=== PATIENT | female | born 1990 | race Caucasian/White ===

== ENCOUNTER 2016-04-23 15:25 | Emergency (ER) | payer OTHER ==
--- NOTE | 2016-04-23 15:57 | ED NURSING NOTES ---
Clinical Report - Nurses [facility] [address] [place] [address] 04/23/2016 15:27 Patient: SUSHMA OTERO TRIAGE Triage time 1530. Acuity: LEVEL 3. Chief Complaint: HEADACHE. Alert. No acute distress. --15:41 Debbie Cortez 15:38 04/23/16. BP: 111/64. HR: 100. RR: 20. O2 saturation: 100%. Temp: 99.4 F. Pain level now 11/17. --15:41 Debbie Cortez. Weight: 110.3 kg. Height/Length: 61 inches. BMI: 46. --15:35 Debbie Cortez. Medications Aleve Oral. --15:39 Debbie Cortez. Allergies No Known Drug Allergy. --15:39 Debbie Cortez. History Arrived by private vehicle. Historian: patient. Accompanied by family. This started today. ( Pt with URI including congestion and sore throat, mouth breathing, then awoke with headache this am, hx of headaches). 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 PAST MEDICAL HX: Headaches. Immunizations: up-to-date. Last normal menstrual period- Apr 12. SOCIAL HX: Never smoker. Occasional alcohol use. --15:41 Debbie Cortez. PROBLEMS: Allergic Rhinitis. Headache. Sinus Problems. Chronic Headache. --15:39 Debbie Cortez. ADDITIONAL SURGERIES: Colonoscopy. Tonsillectomy. --15:39 Debbie Cortez. Interventions ID band on patient. To treatment room. --15:41 Debbie Cortez. PHYSICAL ASSESSMENT Ambulatory to room. GENERAL / NEURO / PSYCH: Alert. Oriented X 4. Appears in no acute distress. Speech within normal limits. ( Playing on phone in WR). HEENT: No facial asymmetry noted. Pupils equal, round and reactive to light. RESPIRATORY: Respirations not labored. Breath sounds within normal limits. CVS: Capillary refill less than 2 seconds. GI / : Abdomen soft and nontender. SKIN: Skin is warm. --15:41 Debbie Cortez. NURSING PROGRESS NOTES Reassurance given. Two patient identifiers checked. Call light placed in reach. Side rails up x 1. Bed placed in lowest position. Brakes of bed on. Patient ready for evaluation- chart flagged. --15:41 Debbie Cortez 15:58 04/23/2016 Toradol (Ketorolac Tromethamine) IM 60 mg given. Given in the right gluteus maurilio. --15:58 Debbie Cortez. DISPOSITION / DISCHARGE 16:13 04/23/16. Departure time: 1608. Condition at departure: improved and stable. No learning barriers present. Discharge instructions provided and reviewed with the patient and family. Reviewed medication(s) side effects, precautions, dosing and course information. Prescription(s) given to the patient. Patient verbalized understanding. Written instructions provided in [place]awk. The patient was discharged by the nurse practitioner. She was discharged home and accompanied by family. She left the Emergency Department ambulatory and via private vehicle. Family member driving. --16:13 Carlos Costa R.N. 16:13 04/23/16. BP: 111/53. HR: 102. RR: 20. O2 saturation: 98%. Temp: 98.6 F. Pain level now 7/10. --16:13 Carlos Costa R.N. 16:18. ( GAS GENERATOR OPERATOR aware of discharge HR). --16:17 Carlos Costa R.N. Locked/Released at 05/07/2016 9:01 by Raquel Vilchis R.N.
--- NOTE | 2016-04-23 15:57 | ED NURSING NOTES ---
Clinical Report - Nurses [facility] [address] [place] [address] 04/23/2016 15:27 Patient: SUSHMA OTERO TRIAGE Triage time 1530. Acuity: LEVEL 3. Chief Complaint: HEADACHE. Alert. No acute distress. --15:41 Debbie Cortez 15:38 04/23/16. BP: 111/64. HR: 100. RR: 20. O2 saturation: 100%. Temp: 99.4 F. Pain level now 11/17. --15:41 Debbie Cortez. Weight: 110.3 kg. Height/Length: 61 inches. BMI: 46. --15:35 Debbie Cortez. Medications Aleve Oral. --15:39 Debbie Cortez. Allergies No Known Drug Allergy. --15:39 Debbie Cortez. History Arrived by private vehicle. Historian: patient. Accompanied by family. This started today. ( Pt with URI including congestion and sore throat, mouth breathing, then awoke with headache this am, hx of headaches). 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 PAST MEDICAL HX: Headaches. Immunizations: up-to-date. Last normal menstrual period- Apr 12. SOCIAL HX: Never smoker. Occasional alcohol use. --15:41 Debbie Cortez. PROBLEMS: Allergic Rhinitis. Headache. Sinus Problems. Chronic Headache. --15:39 Debbie Cortez. ADDITIONAL SURGERIES: Colonoscopy. Tonsillectomy. --15:39 Debbie Cortez. Interventions ID band on patient. To treatment room. --15:41 Debbie Cortez. PHYSICAL ASSESSMENT Ambulatory to room. GENERAL / NEURO / PSYCH: Alert. Oriented X 4. Appears in no acute distress. Speech within normal limits. ( Playing on phone in WR). HEENT: No facial asymmetry noted. Pupils equal, round and reactive to light. RESPIRATORY: Respirations not labored. Breath sounds within normal limits. CVS: Capillary refill less than 2 seconds. GI / : Abdomen soft and nontender. SKIN: Skin is warm. --15:41 Debbie Cortez. NURSING PROGRESS NOTES Reassurance given. Two patient identifiers checked. Call light placed in reach. Side rails up x 1. Bed placed in lowest position. Brakes of bed on. Patient ready for evaluation- chart flagged. --15:41 Debbie Cortez 15:58 04/23/2016 Toradol (Ketorolac Tromethamine) IM 60 mg given. Given in the right gluteus maurilio. --15:58 Debbie Cortez. DISPOSITION / DISCHARGE 16:13 04/23/16. Departure time: 1608. Condition at departure: improved and stable. No learning barriers present. Discharge instructions provided and reviewed with the patient and family. Reviewed medication(s) side effects, precautions, dosing and course information. Prescription(s) given to the patient. Patient verbalized understanding. Written instructions provided in Kiswahili. The patient was discharged by the nurse practitioner. She was discharged home and accompanied by family. She left the Emergency Department ambulatory and via private vehicle. Family member driving. --16:13 Carlos Costa R.N. 16:13 04/23/16. BP: 111/53. HR: 102. RR: 20. O2 saturation: 98%. Temp: 98.6 F. Pain level now 7/10. --16:13 Carlos Costa R.N. 16:18. ( MACHINE SHOP LEAD MAN aware of discharge HR). --16:17 Carlos Costa R.N. Locked/Released at 05/07/2016 9:01 by Raquel Vilchis R.N.
--- NOTE | 2016-04-23 15:57 | ED ORDER SUMMARY ---
..... Patient: SUSHMA OTERO OrderSheet [facility] VisitID: [id number] [address] [place] [address] 25y, F Registration Date/Time: 04/23/2016 ORDER SHEET Weight: 110.3 kg Allergies: No Known Drug Allergy GENERAL ORDERS: MEDICATION ORDERS: Toradol IM 60 mg (NOW) (15:52 04/23/2016 Ariel A.R.N.P.) (15:58 [facility]) IV FLUIDS: ORDER SHEET NOTES: [Electronically signed by Rosaura CarranzaRIvisN.PIvis (16:58 04/23/2016)] [Electronically signed by Raquel Vilchis R.N. (09:01 05/07/2016)] [Electronically locked/signed by Raquel Vilchis R.N. (09:01 05/07/2016)]
--- NOTE | 2016-04-23 15:57 | ED ORDER SUMMARY ---
..... Patient: SUSHMA OTERO OrderSheet [facility] VisitID: [id number] [address] [place] [place] [address] 25y, F Registration Date/Time: 04/23/2016 ORDER SHEET Weight: 110.3 kg Allergies: No Known Drug Allergy GENERAL ORDERS: MEDICATION ORDERS: Toradol IM 60 mg (NOW) (15:52 04/23/2016 Ariel A.R.N.P.) (15:58 [facility]) IV FLUIDS: ORDER SHEET NOTES: [Electronically signed by Rosaura CarranzaRIvisN.PIvis (16:58 04/23/2016)] [Electronically signed by Raquel Vilchis R.N. (09:01 05/07/2016)] [Electronically locked/signed by Raquel Vilchis R.N. (09:01 05/07/2016)]
--- NOTE | 2016-04-23 15:57 | ED CLINICAL REPORT ---
Clinical Report - Physicians/Mid Levels [facility] [address] [place] [address] 04/23/2016 15:27 Patient: SUSHMA OTERO Time Seen: 15:38; initial patient contact, initial documentation, patient care assumed. Arrived- By private vehicle. Historian- patient. HISTORY OF PRESENT ILLNESS Chief Complaint: HEADACHE. Is still present. This started today. It was abrupt in onset and has been constant. It is described as similar to previous headaches and "pain". Located in the region of the right eye and left eye, frontal region and facial region. At its maximum, severity described as moderate. When seen in the E.D., severity described as moderate. Modifying factors: relieved by nothing. Not worsened by anything. No preceding symptoms, blurred vision, photophobia, associated nausea or numbness. No weakness or vomiting. No recent travel. Similar symptoms previously: Frequently, as bad. Recent medical care: Not recently seen/assessed. REVIEW OF SYSTEMS No fever, muscle aches, ear pain, head injury or difficulty breathing. No cough. She has had sinus pressure and a sore throat. brother has flu. All systems otherwise negative, except as recorded above. PAST HISTORY See nurses notes. PROBLEMS: Allergic Rhinitis. Headache. Sinus Problems. Chronic Headache. --15:39 Debbie Cortez. ADDITIONAL SURGERIES: Colonoscopy. Tonsillectomy. --15:39 Debbie Cortez. SOCIAL HISTORY Never smoker. Occasional alcohol use. No drug use. No recent travel. Is a local resident. FAMILY HISTORY Negative. ADDITIONAL NOTES The nursing notes have been reviewed with agreement regarding the chief complaint, HPI, ROS, PMH and patient medications and allergies. PHYSICAL EXAM Vital Signs: 04/23/2016 15:38 BP: 111/64. HR: 100. RR: 20. O2 saturation: 100%. Temp: 99.4 F. Have been reviewed as normal and appear to be correct. Appearance: Alert. No acute distress. Eyes: Pupils equal, round and reactive to light. Eyes normal inspection. ENT: Ears normal. Nose normal. Pharynx normal. Neck: Normal inspection. Neck supple. CVS: Normal heart rate and rhythm. Heart sounds normal. Pulses normal. Respiratory: No respiratory distress. Breath sounds normal. Back: Normal inspection. Skin: Skin warm and dry. Normal skin color. No rash. Normal skin turgor. Extremities: Extremities exhibit normal ROM. No lower extremity edema. Neuro: Oriented X 3. Alert. Mood/affect normal. Speech normal. Cranial nerves normal (as tested). No cerebellar findings. No motor deficit. No sensory deficit. PROGRESS AND PROCEDURES Patient counseled in person regarding the patient's stable condition and diagnosis. 15:57. Differential Diagnosis: I considered migraine, subarachnoid hemorrhage, intracranial bleed, vascular malformation, cerebral aneurysm, vascular dissection, brain abscess, sinusitis, dental etiology, influenza, viral syndrome, analgesic abuse, hypoglycemia and trigeminal neuralgia as a possible cause of headache in this patient. This is a partial list of diagnoses considered. Above considerations are based on history and physical exam. Differential diagnosis was discussed with patient. Disposition: Discharged home in good and improved condition (15:57). Condition: good and stable. CLINICAL IMPRESSION Acute viral rhinitis and ethmoidal and frontal sinusitis. No airway obstruction. Acute, poorly controlled headache. INSTRUCTIONS Warnings: GENERAL WARNINGS: Return or contact your physician immediately if your condition worsens or changes unexpectedly, if not improving as expected, or if other problems arise. SPECIFICALLY, return if you develop vomiting, numbness, weakness, difficulty thinking, visual disturbances, fainting or extreme fatigue. Prescription Medications: Fioricet: Take 1-2 orally every 4 hours as needed for headache. Dispense twenty (20). No refills. Substitution is permissible. Flonase nasal spray: 2 sprays to each nostril once daily for allergies. Dispense one (1) unit. No refills. Substitution is permissible. Follow-up: Follow up with your doctor in about three days as needed. Call for an appointment. Summary of care provided to patient. Understanding of the discharge instructions verbalized by patient. (Electronically signed by Rosaura Carranza A.R.N.P. 04/23/2016 16:58)
--- NOTE | 2016-05-07 09:02 | ED MAR SUMMARY ---
..... Medication Administration Record [facility] [address] [place] [address] Patient: SUSHMA OTERO Visit ID: [id number] 25y, F Weight: 110.3 kg Height/Length: 61 in BMI: 46 ALLERGIES: No Known Drug Allergy Given 15:58 04/23/2016 Debbie Cortez, Medication Administered: TORADOL [IM] (KETOROLAC TROMETHAMINE), Dose: 60 mg IM. Medication Ordered: Toradol IM 60 mg (NOW).
--- NOTE | 2016-05-07 09:02 | ED MED RECONCILIATION SUMMARY ---
Patient: SUSHMA OTERO Medication Reconciliation Report [facility] VisitID: [id number] [address] [place] [address] 25y, F Registration Date/Time: 04/23/2016 Weight: 110.3 kg Height/Length: 61 in. BMI: 46.0 ALLERGIES: No Known Drug Allergy The patient's Home Medications are listed below: THE FOLLOWING MEDICATIONS NEED TO BE RECONCILED: Aleve Oral The source(s) of the original Home Medication information: Not obtained. The following Medications were given to the patient in the Emergency Department: Toradol [IM] IM 60 mg, administered: 04/23/2016 3:58:00 PM The following Medications were prescribed to the patient: Fioricet: Take 1-2 orally every 4 hours as needed for headache. Dispense twenty (20). No refills. Substitution is permissible. -- Rosaura Carranza, A.R.N.P. Flonase nasal spray: 2 sprays to each nostril once daily for allergies. Dispense one (1) unit. No refills. Substitution is permissible. -- Rosaura Carranza, A.R.N.P.
--- NOTE | 2016-05-07 09:02 | ED DISCHARGE INSTRUCTIONS ---
Patient: SUSHMA OTERO General Instructions [facility] VisitID: [id number] [place] [address] 25y, F Registration Date/Time: 04/23/2016 Acute viral rhinitis and ethmoidal and frontal sinusitis. No airway obstruction. Acute, poorly controlled headache. INSTRUCTIONS Warnings: GENERAL WARNINGS: Return or contact your physician immediately if your condition worsens or changes unexpectedly, if not improving as expected, or if other problems arise. SPECIFICALLY, return if you develop vomiting, numbness, weakness, difficulty thinking, visual disturbances, fainting or extreme fatigue. Prescription Medications: Fioricet: Take 1-2 orally every 4 hours as needed for headache. Dispense twenty (20). No refills. Substitution is permissible. Flonase nasal spray: 2 sprays to each nostril once daily for allergies. Dispense one (1) unit. No refills. Substitution is permissible. Follow-up: Follow up with your doctor in about three days as needed. Call for an appointment. Summary of care provided to patient. Understanding of the discharge instructions verbalized by patient. ADDITIONAL INFORMATION Headache [Unspecified] The cause of your headache today is not clear, but it does not appear to be the sign of any serious illness. Under stress, some people tense the muscles of their shoulder, neck and scalp without knowing it. If this condition lasts long enough, a TENSION HEADACHE can occur. A MIGRAINE HEADACHE is caused by changes in blood flow to the brain. A migraine attack may be triggered by emotional stress, hormone changes during the menstrual cycle, oral contraceptives, alcohol use, certain foods containing tyramine, eye strain, weather changes, missing meals, lack of sleep or oversleeping. Other causes of headache include a viral illness with high fever, head injury with concussion, sinus, ear or throat infection, dental pain and TMJ (jaw joint) pain. More serious but less common causes of headache include stroke, brain hemorrhage, brain tumor, meningitis and encephalitis. Home Care: If you were given pain medicine for this headache, do not drive yourself home. Arrange for a ride, instead. When you get home, try to sleep. You should feel much better when you wake up. Apply heat to the back of your neck to relieve neck muscle spasm. Migraine headaches may respond best to an ice pack on the forehead or at the base of the skull. If you are having nausea or vomiting, follow a light diet until your headache is relieved. If you have a migraine type headache, use sunglasses when in the daylight or around bright indoor lighting until symptoms improve. Bright glaring light can worsen this kind of headache. Follow Up with your doctor if the headache is not better within the next 24 hours. If you have frequent headaches you should discuss a treatment plan with your primary care doctor. By being aware of the earliest signs of headache, and starting treatment right away, you may be able to stop the pain yourself. Get Prompt Medical Attention if any of the following occur: Worsening of your head pain or no improvement within 24 hours Repeated vomiting (unable to keep liquids down) Fever of 100.4F (38C) or higher, or as directed by your healthcare provider Stiff neck Extreme drowsiness, confusion or fainting Dizziness, vertigo (dizziness with spinning sensation) Weakness of an arm or leg or one side of the face Difficulty with speech or vision Viral Respiratory Illness [Adult] You have an Upper Respiratory Illness (URI) caused by a virus. This illness is contagious during the first few days. It is spread through the air by coughing and sneezing or by direct contact (touching the sick person and then touching your own eyes, nose or mouth). Most viral illnesses go away within 7-10 days with rest and simple home remedies. Sometimes, the illness may last for several weeks. Antibiotics will not kill a virus and are generally not prescribed for this condition. Home Care: 1) If symptoms are severe, rest at home for the first 2-3 days. When you resume activity, don't let yourself get too tired. 2) Avoid being exposed to cigarette smoke (yours or others). 3) Tylenol (acetaminophen) or ibuprofen (Advil, Motrin) will help fever, muscle aching and headache. (Persons under 18 with fever should not take aspirin since this may cause liver damage.) 4) Your appetite may be poor, so a light diet is fine. Avoid dehydration by drinking 6-8 glasses of fluids per day (water, soft drinks, juices, tea, soup). Extra fluids will help loosen secretions in the nose and lungs. 5) [id number] cold medicines will not shorten the length of time youre sick, but they may be helpful for the following symptoms: cough (Robitussin DM); sore throat (Chloraseptic lozenges or spray); nasal and sinus congestion (Actifed, Sudafed, Chlortrimeton). Follow Up with your doctor or as advised if you dont improve over the next week. Get Prompt Medical Attention if any of the following occur: -- Cough with lots of colored sputum (mucus) or blood in your sputum -- Chest pain, shortness of breath, wheezing or have trouble breathing -- Severe headache; face, neck or ear pain -- Fever over 100.4 F (38.0 C) for more than three days -- You cant swallow due to throat pain Butalbital, Acetaminophen, Caffeine Oral tablet What is this medicine? ACETAMINOPHEN; BUTALBITAL; CAFFEINE (a set a DONALD luther fen; byoo JAYDE bi jayde; KAF een) is a pain reliever. It is used to treat tension headaches. How should I use this medicine? Take this medicine by mouth with a full glass of water. Follow the directions on the prescription label. If the medicine upsets your stomach, take the medicine with food or milk. Do not take more than you are told to take. Talk to your lithographing machine operator regarding the use of this medicine in children. Special care may be needed. What side effects may I notice from receiving this medicine? Side effects that you should report to your doctor or health personal care attendant as soon as possible: allergic reactions like skin rash, itching or hives, swelling of the face, lips, or tongue breathing problems confusion feeling faint or lightheaded, falls redness, blistering, peeling or loosening of the skin, including inside the mouth seizure stomach pain yellowing of the eyes or skin Side effects that usually do not require medical attention (report to your doctor or health personal care attendant if they continue or are bothersome): constipation nausea, vomiting What may interact with this medicine? alcohol or medicines that contain alcohol antidepressants, especially MAOIs like isocarboxazid, phenelzine, tranylcypromine, and selegiline antihistamines benzodiazepines carbamazepine isoniazid medicines for pain like pentazocine, buprenorphine, butorphanol, nalbuphine, tramadol, and propoxyphene muscle relaxants naltrexone phenobarbital, phenytoin, and fosphenytoin phenothiazines like perphenazine, thioridazine, chlorpromazine, mesoridazine, fluphenazine, prochlorperazine, promazine, and trifluoperazine voriconazole What if I miss a dose? If you miss a dose, take it as soon as you can. If it is almost time for your next dose, take only that dose. Do not take double or extra doses. Where should I keep my medicine? Keep out of the reach of children. This medicine can be abused. Keep your medicine in a safe place to protect it from theft. Do not share this medicine with anyone. Selling or giving away this medicine is dangerous and against the law. Store at room temperature between 15 and 30 degrees C (59 and 86 degrees F). Keep container tightly closed. Protect from light. Throw away any unused medicine after the expiration date. What should I tell my health care provider before I take this medicine? They need to know if you have any of these conditions: drink more than 3 alcohol-containing drinks per day drug abuse or addiction heart or circulation problems kidney disease or problems going to the bathroom liver disease lung disease, asthma, or breathing problems porphyria an unusual or allergic reaction to acetaminophen, butalbital or other barbiturates, caffeine, other medicines, foods, dyes, or preservatives or trying to get breast-feeding What should I watch for while using this medicine? Tell your doctor or health personal care attendant if your pain does not go away, if it gets worse, or if you have new or a different type of pain. You may develop tolerance to the medicine. Tolerance means that you will need a higher dose of the medicine for pain relief. Tolerance is normal and is expected if you take the medicine for a long time. Do not suddenly stop taking your medicine because you may develop a severe reaction. Your body becomes used to the medicine. This does NOT mean you are addicted. Addiction is a behavior related to getting and using a drug for a non-medical reason. If you have pain, you have a medical reason to take pain medicine. Your doctor will tell you how much medicine to take. If your doctor wants you to stop the medicine, the dose will be slowly lowered over time to avoid any side effects. You may get drowsy or dizzy when you first start taking the medicine or change doses. Do not drive, use machinery, or do anything that may be dangerous until you know how the medicine affects you. Stand or sit up slowly. Do not take other medicines that contain acetaminophen with this medicine. Always read labels carefully. If you have questions, ask your doctor or pharmacist. If you take too much acetaminophen get medical help right away. Too much acetaminophen can be very dangerous and cause liver damage. Even if you do not have symptoms, it is important to get help right away. Fluticasone Propionate Nasal spray, solution What is this medicine? FLUTICASONE (floo TIK a sone) is a corticosteroid. It helps decrease inflammation in your nose. This medicine is used to treat the symptoms of allergies like sneezing, itching, and runny or stuffy nose. How should I use this medicine? This medicine is for use in the nose. Follow the directions on your prescription label. This medicine works best if used regularly. Do not use more often than directed. Make sure that you are using your nasal spray correctly. Ask you doctor or health care provider if you have any questions. Talk to your lithographing machine operator regarding the use of this medicine in children. While this drug may be prescribed for children as young as 4 years old for selected conditions, precautions do apply. What side effects may I notice from receiving this medicine? Side effects that you should report to your doctor or health personal care attendant as soon as possible: allergic reactions like skin rash, itching or hives, swelling of the face, lips, or tongue changes in vision flu-like symptoms white patches or sores in the mouth or nose Side effects that usually do not require medical attention (report to your doctor or health personal care attendant if they continue or are bothersome): burning or irritation inside the nose or throat cough headache nosebleed unusual taste or smell What may interact with this medicine? ketoconazole metyrapone some medicines for HIV vaccines What if I miss a dose? If you miss a dose, use it as soon as you remember. If it is almost time for your next dose, use only that dose and continue with your regular schedule. Do not use double or extra doses. Where should I keep my medicine? Keep out of the reach of children. Store at room temperature between 15 and 30 degrees C (59 and 86 degrees F). Throw away any unused medicine after the expiration date. What should I tell my health care provider before I take this medicine? They need to know if you have any of these conditions: infection, like tuberculosis, herpes, or fungal infection recent surgery on nose or sinuses taking corticosteroid by mouth an unusual or allergic reaction to fluticasone, steroids, other medicines, foods, dyes, or preservatives or trying to get breast-feeding What should I watch for while using this medicine? Visit your doctor or health personal care attendant for regular checks on your progress. Some symptoms may improve within 12 hours after starting use. Check with your doctor or health personal care attendant if there is no improvement in your condition after 3 weeks of use. Do not come in contact with people who have chickenpox or the measles while you are taking this medicine. If you do, call your doctor right away. You have been given the following additional information: Headache, Unspecified Uri, Viral, No Abx (Adult) Butalbital, Acetaminophen, Caffeine Oral tablet Fluticasone Propionate Nasal spray, solution (Electronically signed by Rosaura Carranza A.R.N.P. 04/23/2016 16:58)
--- NOTE | 2016-05-07 09:02 | ED MAR SUMMARY ---
..... Medication Administration Record [facility] [address] [place] [address] Patient: SUSHMA OTERO Visit ID: [id number] 25y, F Weight: 110.3 kg Height/Length: 61 in BMI: 46 ALLERGIES: No Known Drug Allergy Given 15:58 04/23/2016 Debbie Cortez, Medication Administered: TORADOL [IM] (KETOROLAC TROMETHAMINE), Dose: 60 mg IM. Medication Ordered: Toradol IM 60 mg (NOW).
--- NOTE | 2016-05-07 09:02 | ED MED RECONCILIATION SUMMARY ---
Patient: SUSHMA OTERO Medication Reconciliation Report [facility] VisitID: [id number] [address] [place] [address] 25y, F Registration Date/Time: 04/23/2016 Weight: 110.3 kg Height/Length: 61 in. BMI: 46.0 ALLERGIES: No Known Drug Allergy The patient's Home Medications are listed below: THE FOLLOWING MEDICATIONS NEED TO BE RECONCILED: Aleve Oral The source(s) of the original Home Medication information: Not obtained. The following Medications were given to the patient in the Emergency Department: Toradol [IM] IM 60 mg, administered: 04/23/2016 3:58:00 PM The following Medications were prescribed to the patient: Fioricet: Take 1-2 orally every 4 hours as needed for headache. Dispense twenty (20). No refills. Substitution is permissible. -- Rosaura Carranza, A.R.N.P. Flonase nasal spray: 2 sprays to each nostril once daily for allergies. Dispense one (1) unit. No refills. Substitution is permissible. -- Rosaura Carranza, A.R.N.P.
== END 2016-04-23 16:08 | disposition home or self-care (01) ==
LOC: ED SRH 15:25
DX: J01.20 Acute ethmoidal sinusitis, unspecified (principal); J01.10 Acute frontal sinusitis, unspecified; R51 Headache; J00 Acute nasopharyngitis [common cold]